=== PATIENT | female | born 1965 | race Caucasian/White ===

== ENCOUNTER → 2020-08-07 | Outpatient (CLI) | payer OTHER ==
--- NOTE | 2020-08-07 12:16 | XR ---
EXAMINATION TYPE: XR wrist complete RT DATE OF EXAM: 08/07/2020 COMPARISON: None HISTORY: Pain after fall TECHNIQUE: Four-view right wrist. Multiple images were obtained. FINDINGS: No acute fracture or dislocation is evident. Soft tissues appear normal. Joint spaces are p reserved. Follow-up exams can be performed 7-10 days from acute trauma for continued pain. Nuclear medicine bon e scan could be performed for pain at the anatomic snuff box. IMPRESSION: 1. Normal 4 view right wrist.
--- NOTE | 2020-08-07 12:17 | XR ---
EXAMINATION TYPE: XR knee complete LT DATE OF EXAM: 08/07/2020 COMPARISON: None HISTORY: Pain, fall TECHNIQUE: Three-view left knee FINDINGS: No acute fracture or dislocation is evident. Joint spaces are preserved. No joint effusion is evident. Follow-up exams can be performed 7-10 days from acute trauma for continued pain. IMPRESSION: 1. Normal three-view left knee
== END | disposition home or self-care (01) ==
LOC: RADXRMAIN 11:50
PROVIDERS: ATTEND Emergency Medicine
DX: S80.02XA Contusion of left knee, initial encounter (principal); S60.211A Contusion of right wrist, initial encounter

== ENCOUNTER → 2020-08-12 | Outpatient (CLI) | payer OTHER ==
--- NOTE | 2020-08-12 10:47 | CT ---
EXAMINATION TYPE: CT brain lucy lay DATE OF EXAM: 08/12/2020 COMPARISON: None HISTORY: 54-year-old female Fall, struck Rt parietal region, ZUÑIGA, neck pain CT DLP: 1430.0 mGycm Automated exposure control for dose reduction was used. Technique: Examination of the head was done in axial plane without intravenous contrast. Coronal and sagittal reconstructions performed. CT of the cervical spine was obtained in axial plane without intravenous injection of contrast mater ial. Coronal and sagittal reformatted images were obtained from the axial views for evaluation of f ractures, spinal alignment and canal. FINDINGS: Head: There is no evidence of acute intracranial hemorrhage, acute ischemic changes, mass, mass-effect, or extra-axial fluid collection. There is no effacement of cerebral sulci or basal subarachnoid cister ns. There is no hydrocephalus. There is no midline shift. Leal-white matter distinction is preserv ed. Incidental partially empty sella. Rightward nasal septal deviation. Air-fluid level right sphenoid sinus. No calvarial fracture. Orbits and globes are intact. Mastoid air cells are well pneumatized. Cervical spine: No craniocervical junction anomaly, predental space widening, or prevertebral soft tissue swelling. Preserved alignment of the cervical spine. No acute fracture is identified. Hypertrophic facet arthropathy throughout, particularly on the left-hand side. Mild degenerative disc disease especially C5-C7 levels. There is mild bilateral neuroforaminal stenoses. Mild emphysematous change of the visualized upper lungs. Tiny calcified granuloma right apex. Some pl eural parenchymal scarring at the left apex. Bilateral palatine tonsillar hypertrophy with punctate bilateral calcifications compatible with seque la of prior infection. Sagittal and coronal reformatted images confirm above findings. COMBINED IMPRESSION: 1. No acute intracranial abnormality seen. 2. No acute fracture or malalignment of the cervical spine. Hypertrophic facet arthropathy. Mild dege nerative disc disease C5-C7 levels. 3. Air-fluid level right sphenoid sinus may be seen with acute sinusitis. Clinically correlate. 4. COPD with mild emphysema in the visualized upper lungs. 5. Moderate bilateral palatine tonsillar hypertrophy. Punctate calcification suggests sequela of prio r infection.
== END | disposition home or self-care (01) ==
LOC: RADCTMAIN 10:11
PROVIDERS: ATTEND Emergency Medicine
DX: M50.322 Other cervical disc degeneration at C5-C6 level (principal); M47.812 Spondylosis without myelopathy or radiculopathy, cervical region; S00.83XD Contusion of other part of head, subsequent encounter
CPT/HCPCS: 70450; 72125

== ENCOUNTER → 2020-08-20 | Outpatient (CLI) | payer OTHER ==
--- NOTE | 2020-08-20 09:31 | XR ---
Left knee HISTORY: Trauma and pain 3 views of the left knee, correlation prior exam 08/07/2020 There is mild osteoarthritic change, joint space loss is present tricompartmentally, there is minimal marginal spurring. Alignment and bone mineralization are maintained. Suprapatellar increased attenua tion suggesting minimal effusion. IMPRESSION: No fracture or dislocation. Osteoarthritis. Consider knee MRI.
== END | disposition home or self-care (01) ==
LOC: RADXRMAIN 08:59
PROVIDERS: ATTEND Emergency Medicine
DX: M17.12 Unilateral primary osteoarthritis, left knee (principal)